=== PATIENT | male | born 1990 | race Caucasian/White ===

== ENCOUNTER 2024-09-18 18:59 | Inpatient (IN) | payer SELFPAY ==
[2024-09-18 19:05] VITALS: BP 146/89; PULSE 110; RESP 18; TEMP 37; O2SAT 98; BMI 36.8
--- NOTE | 2024-09-18 19:09 | ED.C_ITS ---
HPI - Psych 2 General: Chief Complaint: Psychiatric Symptoms Stated Complaint: MHE, SI Time Seen by Provider: 09/18/24 19:01 Source: patient Mode of arrival: ambulatory Limitations: no limitations History of Present Illness: 34-year-old male who states that he is h er paperwork today by his ex- about his children's concerns and him to have suicidal thoughts. He states he has had suicidality all day long. Denies any worse improved fracture denies any specific plans. Associated symptoms: Reports depression and suicidal ideation Related Data Allergies Allergy/AdvReac Type Severity Reaction Status Date / Time No Known Allergies Allergy Verified 09/18/24 19:09 Review of Systems 2 Const: Denies: fever(s), chills, body aches or change in appetite ENMT: Denies: throat pain or dental pain Card: Denies: chest pain Resp: Denies: dyspnea GI: Denies: abdominal pain, nausea, vomiting or diarrhea Musc: Denies: neck pain or back pain Skin/Breast: Denies: rash Neuro: Denies: headache(s) Psych: Reports: depression and suicidal ideation Physical Exam 2 Const: COMMON NORMALS: no acute distress, patient oriented x3 and healthy appearing HENMT: COMMON NORMALS: normocephalic and atraumatic HEAD & SCALP: n ormocephalic and atraumatic Eye: COMMON NORMALS: conjunctivae normal CONJUNCTIVA: Yes conjunctivae normal Neck/C-Spine: COMMON NORMALS: full ROM and supple Chest: COMMONS NORMALS: normal inspection of the chest Resp: COMMON NORMALS: normal respiratory effort Cardio: COMMON NORMALS: regular rate RATE: regular rate Extremity: COMMON NORMALS: normal to inspection and full ROM Neuro: COMMON NORMALS: patient oriented x3, moves all extremities and no focal motor deficits Psych: COMMON NORMALS: mental status grossly normal, Normal thought process present and cooperative MOOD & AFFECT: Yes depressed mood THOUGHT PROCESS: Normal thought process present THOUGHT CONTENT: Yes Suicidality present Skin: COMMON NORMALS: no rashes or lesions noted and no wounds GENERAL SKIN EXAM: no rashes or lesions noted Course 2 Vital Signs: Vital signs: Vital Signs Temperature 98.6 F 09/18/24 19:05 Pulse Rate 110 H 09/18/24 19:05 Respiratory Rate 18 09/18/24 19:05 Blood Pressure 146/89 09/18/24 19:05 Pulse Oximetry 98 09/18/24 19:05 Oxygen Delivery Me thod Room Air 09/18/24 19:05 MDM - Psych Medical Decision Making Patient presents here with suicidal ideations he is medically cleared spoke to psychiatrist will admit at this time. Medical Records I reviewed the patient's medical records. Lab Data I reviewed the patient's lab results. 09/18/24 19:13 09/18/24 19:13 Laboratory Results WBC 9.84 10^3/uL (3.29-11.43) 09/18/24 19:13 RBC 4.66 10^6/uL (3.85-5.65) 09/18/24 19:13 Hgb 14.10 g/dL (11.27-16.99) 09/18/24 19:13 Hct 42.2 % (37-53) 09/18/24 19:13 MCV 90.6 fl (82-101) 09/18/24 19:13 MCH 30.3 pg (27-33) 09/18/24 19:13 MCHC 33.4 g/dL (30-55) 09/18/24 19:13 RDW 12.1 % (12.1-15.1) 09/18/24 19:13 Plt Count 268 10^3/cmm (157-399) 09/18/24 19:13 MPV 9.6 fL (7.4-10.4) 09/18/24 19:13 Neut % (Auto) 78.8 % 09/18/24 19:13 Lymph % (Auto) 11.6 % 09/18/24 19:13 [place] % (Auto) 8.6 % 09/18/24 19:13 Eos % (Auto) 0.4 % 09/18/24 19:13 Baso % (Auto) 0.3 % 09/18/24 19:13 Neut # (Auto) 7.75 10^3/uL (1.8-7.7) H 09/18/24 19:13 Lymph # (Auto) 1.1 10^3/uL (0.8-4.8) 09/18/24 19:13 [place] # (Auto) 0.9 10^3/uL (0.2-0.9) 09/18/24 19:13 Eos # (Auto) 0.0 10^3/uL (0.0-0.8) 09/18/24 19:13 Baso # (Auto) 0.0 10^3/uL (0.0-0.1) 09/18/24 19:13 Nucleated RBC % (auto) 0 % 09/18/24 19:13 Nucleated RBCs # 0.0 /100WBC 09/18/24 19:13 No radiology studies performed this visit Discharge Plan Discharge Patient Disposition: Admitted As Inpatient Clinical Impression: Suicidal ideation Condition: Stable Coding Level of Care Code ED [employer] Supervisor for [place] Franco
[2024-09-18 19:21] LABS: Basophils % 0.3 %; Eosinophils % 0.4 %; Hematocrit 42.2 % (37-53); Lymphocytes # 1.1 10^3/uL (0.8-4.8); Lymphocytes % 11.6 %; Mean Corpuscular HGB Conc 33.4 g/dL (30-55); Mean Corpuscular Hemoglobin 30.3 pg (27-33); Mean Corpuscular Volume 90.6 fl (82-101); Mean Platelet Volume 9.6 fL (7.4-10.4); Monocytes # 0.9 10^3/uL (0.2-0.9); Monocytes % 8.6 %; Neutrophils # 7.75 10^3/uL (1.8-7.7); Neutrophils % 78.8 %; Nucleated Red Blood Cells % 0 %; Platelet Count 268 10^3/cmm (157-399); Red Blood Count 4.66 10^6/uL (3.85-5.65); Red Cell Distribution Width 12.1 % (12.1-15.1); White Blood Count 9.84 10^3/uL (3.29-11.43)
[2024-09-18 19:42] LABS: Alanine Aminotransferase 23 U/L (0-41); Albumin Level 4.5 g/dL (3.5-5.2); Alkaline Phosphatase 85 U/L (40-130); Anion Gap 17.7 (5-19); Aspartate Amino Transferase 20 U/L (0-40); Blood Urea Nitrogen 16 mg/dL (6-20); Calcium 9.4 mg/dL (8.5-10.5); Carbon Dioxide 23 mmol/L (22-29); Chloride 103 mmol/L (98-107); Creatinine Clr Calc Pharmacy 118.0315; Globulin 3.3 g/dL (1.3-4.6); Glomerular Filtration Rate 63.2 mL/min (90-130); Glucose 106 mg/dL (65-115); Osmolality Calculated 292 mOsm/kg (285-295); Potassium 3.7 mmol/L (3.5-5.1); Salicylate 0.9 mg/dL (3-10); Sodium 140 mmol/L (136-145); Total Bilirubin 0.4 mg/dL (0.15-1.2); Total Protein 7.8 g/dL (6.6-8.7)
[2024-09-18 19:49] LABS: Acetaminophen < 5.0 ug/mL (10-30); Alcohol Level < 10 mg/dL (0-10)
[2024-09-18 20:14] LABS: Amphetamines Screen Urine Negative (Negative); Barbiturates Screen Urine Negative (Negative); Benzodiazepines Screen Urine Negative (Negative); Cocaine Screen Urine Negative (Negative); Opiate Screen Urine Negative (Negative); PCP Screen Urine Negative (Negative); THC Screen Urine Positive (Negative)
--- NOTE | 2024-09-18 21:11 | PC.NURSE ---
96 [facility] Copy of Rights served to pt by this RN and Security. Pt sitting on side of bed, A&Ox3. Pt stated that he has never been placed on 96 [facility] before. Process of hold explained to pt. All questions answered.
[2024-09-18 21:21] VITALS: BP 141/97; PULSE 100; O2SAT 98
[2024-09-18 21:26] VITALS: BP 152/81; PULSE 102; RESP 18; TEMP 36.6; O2SAT 96
[2024-09-18 22:00] VITALS: BP 152/81; PULSE 102; RESP 18; TEMP 36.6; O2SAT 96
[2024-09-19 06:00] VITALS: BP 112/69; PULSE 68; RESP 18; TEMP 36.5; O2SAT 96
[2024-09-19] MEDS: ibuprofen 600 mg Tablet PO ×2 (08:12→16:39)
--- NOTE | 2024-09-19 09:49 | XR_ITS ---
WS: [id number] Exam: XR hand RT 2V [id number] Date/Time of Exam: 09/19/2024 9:54 AM Reason For Exam: Swollen Knuckles No acute fracture. The joints are preserved. No soft tissue foreign bodies. Healed fracture deformity of the fifth metacarpal. XR/XR hand RT 2V [id number] IMPRESSION: 1. Negative RIGHT hand.
--- NOTE | 2024-09-19 10:06 | PC.NURSE ---
Dr. Cantor gave a v/o for prozac 20mg po daily, start now.
[2024-09-19] MEDS: fluoxetine 20 mg Capsule PO (10:21)
--- NOTE | 2024-09-19 12:10 | P.NPUHP_ITS ---
Providers/Chief Complaint 2 Admitting Physician: Orlando Cantor MD Chief Complaint: MHE, SI HPI NPU History of Present Illness Marcel Walker is a 34 year old male with no prior history of inpatient or outpatient treatment who presented to the emergency department with reports of having suicidal thoughts over the past 1 to 2 days. The patient had reported that he had received paperwork from his ex- stating that they would be going back to court and dispute of custody issues and the patient had reported that he became distraught and felt increasingly hopeless. He had reported that he had had a physical outburst where he had punched some objects and had become extremely angry in front of his fianc?e and reports that he has been increasingly frustrated. He had reported that he had had thoughts of being better off and states that he has been feeling depressed for some time now. He reported that he has been sleeping well but reports increased anhedonia and increased anxiety over the past few days. Patient reports he has been more tearful and more feelings of guilt have been present over the last few weeks. He had reported that he has struggled with finances and reports that he feels guilty about putting family members in this situation as he states that he should be able to tolerate the stress. He had reported no use of drugs or alcohol. He denies any manic symptoms. He denies any psychotic symptoms. He had reported no prior history of depressive episodes. He denies any drug or alcohol use. He reports no chronic pain issues. He had denied any homicidal thoughts. The patient had reported that he had felt depressed more days than not over the past 2 to 3 weeks. Inpatient psychiatric history: None Outpatient psychiatric history: None Substance abuse history: He reports occasional alcohol use. He denies any history of illicit drug use nor does he endorse a history of drug or alcohol treatment. Medical history: Seasonal allergies Surgeries: 2 separate knee surgeries Allergies: No known drug allergies Medications: None Legal history: None actively. He had been on probation once for serving alcohol to a minor who was his at the time. He has no history of incarcerations. Family psychiatric history: None reported Social history: The patient was raised in [facility]. Grew up in an intact family. He had no history of learning problems and graduated high school and attended some college. 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 He has 2 older sisters who currently live outside of the state. He reports that he had previously been for more than 10 years and has 2 children from his now ex- ages 8 and 10 who he shares custody with. 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 He had denied any history of trauma during his childhood or adulthood. Meds NPU Home Medications ?Medication ?Instructions ?Recorded ?Confirmed ?Last Taken ?Type No Known Home Medications 09/18/2409/07 Unknown History Allergies Allergy/AdvReac Type Severity Reaction Status Date / Time No Known Allergies Allergy Verified 09/18/24 19:09 Mental Status Exam 2 MSE Comments: Patient is a casually dressed healthy white male who appeared his stated age was alert and oriented to person place time and situation. He was friendly and cooperative on interview. There was some evidence of mild psychomotor retardation. His speech was normal in regards to rate, rhythm, and prosody. His thought process was linear, logical, and goal-directed. His thought content revealed suicidal ideation with no active plan at this time. He denied any homicidal ideation. He did not appear to be responding to internal stimuli. There was no evidence of delusional thinking. His mood was described as depressed. His affect was tearful and mood congruent. His recent and remote memory were both grossly intact. His insight was fair. His judgment appeared poor at this time. His impulse control remained guarded. Vitals/I&O/Wt Last Vital Signs Temp 97.7 F 09/19/24 06:00 Pulse 68 09/19/24 06:00 Resp 18 09/19/24 06:00 BP 112/69 09/19/24 06:00 Pulse Ox 96 09/19/24 06:00 O2 Del Method Room Air 09/19/24 06:00 09/18/24 09/19/24 09/19/24 22:59 06:59 14:59 Intake Total 0 / 0 Balance 0 / 0 Weight last 48 hrs Weight 133.81 kg Data NPU 09/18/24 19:13 09/18/24 19:13 A&P Assessment and plan (1) MDD (major depressive episode), single episode, severe, no psychosis: (2) Suicidal ideation: Plan 34-year-old male with no prior history of mental health issues reporting worsening depression over the past few weeks and culminating with being served legal papers regarding adjustment for custody with the patient reporting suicidal ideation and increased feelings of hopelessness. #1.? Engage patient in individual milieu and group therapy. #2?? Recommend sober living treatment at the highest level of care to which the patient is willing to commit. #3??? Begin Prozac 20mg daily to target depression. #4?? TO-15 minute checks? #5?? Will attempt to gather collateral information PDMP PDMP Reviewed: Not Reviewed Involuntary Hold Information 2 Hold Status: Legal Status: 96 Hour Hold Date/Time Hold Expires: 09/22/24 @1914 Attestations NPU 2 Medical Necessity Statement*: Inpatient hospitalization is medically necessary and deemed to ?be ?the clinically appropriate intervention ?at this time.? We will monitor/initiate medications and make changes as indicated.? The patient will be hospitalized for at least two midnights. The patient?s likely length of stay 7-10 days. Coding Level of Care Code Acute Code for Chg Fwd Diagnoses MDD (major depressive episode), single episode, severe, no psychosis F32.2 Suicidal ideation R45.851
[2024-09-19 14:00] VITALS: BP 153/102; PULSE 80; RESP 17; O2SAT 98
[2024-09-19 19:37] VITALS: BP 121/72; PULSE 53; RESP 18; TEMP 37; O2SAT 95
[2024-09-19] MEDS: trazodone 50 mg Tablet PO ×2 (20:21→21:57)
[2024-09-20 06:00] VITALS: BP 113/78; PULSE 73; RESP 18; TEMP 37; O2SAT 97
[2024-09-20] MEDS: fluoxetine 20 mg Capsule PO (08:06)
--- NOTE | 2024-09-20 11:46 | P.NPUDS_ITS ---
Diagnoses at Discharge Discharge Diagnosis (1) MDD (major depressive episode), single episode, severe, no psychosis: Status: Acute (2) Suicidal ideation: Status: Acute Reason for Visit Reason for Visit: MHE, ZOILA Brief History: History of Present Illness Marcel Walker is a 34 year old male with no prior history of inpatient or outpatient treatment who presented to the emergency department with reports of having suicidal thoughts over the past 1 to 2 days. The patient had reported that he had received paperwork from his ex- stating that they would be going back to court and dispute of custody issues and the patient had reported that he became distraught and felt increasingly hopeless. He had reported that he had had a physical outburst where he had punched some objects and had become extremely angry in front of his fianc?e and reports that he has been increasingly frustrated. He had reported that he had had thoughts of being better off and states that he has been feeling depressed for some time now. He reported that he has been sleeping well but reports increased anhedonia and increased anxiety over the past few days. Patient reports he has been more tearful and more feelings of guilt have been present over the last few weeks. He had reported that he has struggled with finances and reports that he feels guilty about putting family members in this situation as he states that he should be able to tolerate the stress. He had reported no use of drugs or alcohol. He denies any manic symptoms. He denies any psychotic symptoms. He had reported no prior history of depressive episodes. He denies any drug or alcohol use. He reports no chronic pain issues. He had denied any homicidal thoughts. The patient had reported that he had felt depressed more days than not over the past 2 to 3 weeks. Inpatient psychiatric history: None Outpatient psychiatric history: None Substance abuse history: He reports occasional alcohol use. He denies any history of illicit drug use nor does he endorse a history of drug or alcohol treatment. Medical history: Seasonal allergies Surgeries: 2 separate knee surgeries Allergies: No known drug allergies Medications: None Legal history: None actively. He had been on probation once for serving alcohol to a minor who was his at the time. He has no history of incarcerations. Family psychiatric history: None reported Social history: The patient was raised in [facility]. Grew up in an intact family. He had no history of learning problems and graduated high school and attended some college. He had had additional training as a welder assembler. He has 2 older sisters who currently live outside of the state. He reports that he had previously been for more than 10 years and has 2 children from his now ex- ages 8 and 10 who he shares custody with. 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 He had denied any history of trauma during his childhood or adulthood. Hospital Course Hospital Course During the hospitalization, the patient had routine laboratory studies which were within normal limits except for a few outliers.? Additionally, there was a general medical evaluation which was also within normal limits and revealed no new acute processes.? At the time of discharge, lethality was denied. ? Mood and anxiety were well managed.? He was started on Prozac 20mg daily with plan to begin psychotherapy on an outpatient basis. The patient endorsed a plan to avoid all drugs of abuse and follow up with the aftercare recommendations of the treatment team.? The patient was evaluated and deemed to be absent credible lethality and had achieved the maximum benefit from an inpatient hospitalization, and so was discharged. ? Involuntary Hold Information Hold Status: Legal Status: 96 Hour Hold Date/Time Hold Expires: 09/22/24 @1914 Mental Status Exam MSE Comments: Patient is a casually dressed healthy white male who appeared his stated age was alert and oriented to person place time and situation. He was friendly and cooperative on interview. There was some evidence of mild psychomotor retardation. His speech was normal in regards to rate, rhythm, and prosody. His thought process was linear, logical, and goal-directed. His thought content revealed no suicidal ideation with no active plan at this time. He denied any homicidal ideation. He did not appear to be responding to internal stimuli. There was no evidence of delusional thinking. His mood was described as better. His affect was mildly restricted but brighter than yesterday. He endorsed a sense of hopefullness. His recent and remote memory were both grossly intact. His insight was fair. His judgment appeared fair. His impulse control was fair on discharge. Discharge Data Studies Completed and Pending: Completed Studies During Hospitalization Category Date Time Status XR hand RT 2V 731 20 Routine Exams 09/19/24 09:49 Completed Radiology Impressions Hand X-Ray 09/19/24 09:49 IMPRESSION: 1. Negative RIGHT hand. Laboratory Results WBC 9.84 10^3/uL (3.2 9-11.43) 09/18/24 19:13 RBC 4.66 10^6/uL (3.8 5-5.65) 09/18/24 19:13 Hgb 14.10 g/dL (11.27 -16.99) 09/18/24 19:13 Hct 42.2 % (37-53) 09/18/24 19:13 MCV 90.6 fl (82-101) 09/18/24 19:13 MCH 30.3 pg (27-33) 09/18/24 19:13 MCHC 33.4 g/dL (30-55) 09/18/24 19:13 RDW 12.1 % (12.1-15.1 ) 09/18/24 19:13 Plt Count 268 10^3/cmm (157 -399) 09/18/24 19:13 MPV 9.6 fL (7.4-10.4) 09/18/24 19:13 Neut % (Auto) 78.8 % 09/18/24 19:13 Lymph % (Auto) 11.6 % 09/18/24 19:13 [place] % (Auto) 8.6 % 09/18/24 19:13 Eos % (Auto) 0.4 % 09/18/24 19:13 Baso % (Auto) 0.3 % 09/18/24 19:13 Neut # (Auto) 7.75 10^3/uL (1.8 -7.7) H 09/18/24 19:13 Lymph # (Auto) 1.1 10^3/uL (0.8- 4.8) 09/18/24 19:13 [place] # (Auto) 0.9 10^3/uL (0.2- 0.9) 09/18/24 19:13 Eos # (Auto) 0.0 10^3/uL (0.0- 0.8) 09/18/24 19:13 Baso # (Auto) 0.0 10^3/uL (0.0- 0.1) 09/18/24 19:13 Nucleated RBC % (a uto) 0 % 09/18/24 19:13 Nucleated RBCs # 0.0 /100WBC 09/18/24 19:13 Sodium 140 mmol/L (136-1 45) 09/18/24 19:13 Potassium 3.7 mmol/L (3.5-5 .1) 09/18/24 19:13 Chloride 103 mmol/L (98-10 7) 09/18/24 19:13 Carbon Dioxide 23 mmol/L (22-29) 09/18/24 19:13 Anion Gap 17.7 (5-19) 09/18/24 19:13 BUN 16 mg/dL (6-20) 09/18/24 19:13 Creatinine 1.3 mg/dL (0.7-1. 2) H 09/18/24 19:13 GFR Calculation 63.2 mL/min (90-1 30) L 09/18/24 19:13 Glucose 106 mg/dL (65-115 ) 09/18/24 19:13 Calculated Osmolal ity 292 mOsm/kg (285- 295) 09/18/24 19:13 Calcium 9.4 mg/dL (8.5-10 .5) 09/18/24 19:13 Total Bilirubin 0.4 mg/dL (0.15-1 .2) 09/18/24 19:13 AST 20 U/L (0-40) 09/18/24 19:13 ALT 23 U/L (0-41) 09/18/24 19:13 Alkaline Phosphata se 85 U/L (40-130) 09/18/24 19:13 Total Protein 7.8 g/dL (6.6-8.7 ) 09/18/24 19:13 Albumin 4.5 g/dL (3.5-5.2 ) 09/18/24 19:13 Globulin 3.3 g/dL (1.3-4.6 ) 09/18/24 19:13 Salicylates 0.9 mg/dL (3-10) L 09/18/24 19:13 Urine Opiates Scre en Negative ng/mL (N egative) 09/18/24 19:16 Acetaminophen < 5.0 ug/mL (10-3 0) L 09/18/24 19:13 Ur Barbiturates Sc reen Negative ng/mL (N egative) 09/18/24 19:16 Ur Phencyclidine S crn Negative ng/mL (N egative) 09/18/24 19:16 Ur Amphetamines Sc reen Negative ng/mL (N egative) 09/18/24 19:16 U Benzodiazepines Scrn Negative ng/mL (N egative) 09/18/24 19:16 Urine Cocaine Scre en Negative ng/mL (N egative) 09/18/24 19:16 U Marijuana (THC) Screen Positive ng/mL (N egative) H 09/18/24 19:16 Ethyl Alcohol < 10 mg/dL (0-10) 09/18/24 19:13 Vitals: Last Vital Signs Temp 98.6 F 09/20/24 06:00 Pulse 73 09/20/24 06:00 Resp 18 09/20/24 06:00 BP 113/78 09/20/24 06:00 Pulse Ox 97 09/20/24 06:00 O2 Del Method Room Air 09/19/24 06:00 Discharge Plan Discharge Patient Disposition: Home Condition: Stable Prescriptions: New fluoxetine 20 mg Capsule 20 mg PO DAILY 30 Days Qty: 30 1RF Discharge Orders: Discharge Order (Routine); Ordered 09/20/24 Ordered By: Orlando Cantor Referrals: [facility] [Other] Referral Note: Therapist who do Sliding scale. Petty Blandon [phone], Shana Gan [phone]. [facility] [Outside] - 09/27/24 9:30 am Referral Note: Scheduled with Petty Landrum on 09/27/24 ck in at 09:30 am for initial assessment. Discharge Diet: Usual diet Discharge Activity: Resume usual activity Patient Instructions: Depression, Fluvoxamine (By mouth) (Luvox CR), Opioid Safety Discharge Attestations NPU Time Spent in Discharge Care*: less than 30 min Specific Discharge Activities: Specific discharge activities: educating patient, discussing with mental health case manager/social workers/dc planners and documenting/other paperwork Coding Level of Care Code Acute Code for g Fwd Diagnoses MDD (major depressive episode), single episode, severe, no psychosis F32.2 Suicidal ideation R45.850
[2024-09-20 13:04] VITALS: BP 131/78; PULSE 89; RESP 16; O2SAT 97
== END 2024-09-20 13:20 | disposition home or self-care (01) | DRG 885 ==
LOC: ER 20:12 → NP 21:14
PROVIDERS: Admitting Provider Psychiatry & Neurology Psychiatry; Emergency Provider Emergency Medicine; Visit Provider Psychiatry & Neurology Psychiatry
DX: F32.2 Major depressive disorder, single episode, severe without psychotic features (principal); R45.851 Suicidal ideations; Z63.8 Other specified problems related to primary support group; F41.9 Anxiety disorder, unspecified
CPT/HCPCS: 36415; 73120; 80053; 80306; 80307; 85025; 97150; 97165; 99285; J9999